=== PATIENT | female | born 1940 | race Caucasian/White ===

== ENCOUNTER 2017-01-14 20:38 | Inpatient (IN) | payer MEDICARE, OTHER ==
--- NOTE | ~2017-01-14 | HP ---
Unit #: [id number] #: [id number] Patient: JEAN-PIERRE BUCKLEY [id number] [place] [address] [id number] MR#: [id number] NAME: JEAN-PIERRE BUCKLEY ROOM: P204 Age: 76 Sex: F Admission Date: 01/14/2017 : 1940 Attending Physician: Jass Shore M.D. Admitting Physician: Jass Shore M.D. Primary Care Physician: [facility] HISTORY AND PHYSICAL HISTORY OF PRESENT ILLNESS Jean-Pierre is a 76 year old admitted to [address] [place] [address] because of her abuse of alcohol. She is detoxing. PAST MEDICAL HISTORY 1. Long history of alcohol abuse. 2. Hypothyroidism. 3. Rheumatoid arthritis. 4. History of sick sinus syndrome. a. Pacemaker. PAST SURGICAL HISTORY 1. Pacemaker placed. 2. Hysterectomy. 3. T and A. ALLERGIES No known drug allergies. SOCIAL HISTORY She does not smoke. Drinks at least a bottle of wine on a daily basis and denies illicit drug use. FAMILY HISTORY Medically noncontributory. REVIEW OF SYSTEMS CONSTITUTIONAL: No fever or chills. HEENT: Denies any sore throat, ear pain or runny nose. CARDIOVASCULAR: Denies chest pain, irregular heart rhythm or palpitations. CHEST: Denies shortness of breath or cough. No hemoptysis. GASTROINTESTINAL: Denies nausea, vomiting, diarrhea or chronic constipation. ENDOCRINE: Denies history of increased thirst or urination. No recent significant weight loss or gain. GENITOURINARY: Denies dysuria, frequency, or hematuria. SKIN: Denies any rashes. HEMATOLOGIC: Denies history of increased bleeding or bruising. MUSCULOSKELETAL: Denies any hot, swollen joints. No generalized muscle pain. NEUROLOGIC: Denies problems with vision or speech. No frequent, severe headaches. No numbness, tingling or weakness in any extremities. Denies loss of bladder or bowel control. Unit #: [id number] #: [id number] Patient: JEAN-PIERRE BUCKLEY CURRENT MEDICATIONS 1. Detox protocol. 2. BuSpar 10 mg q.h.s. 3. Multivitamin 1 daily. 4. Lasix 20 mg daily. 5. KCL 20 mEq b.i.d. 6. Claritin 10 mg daily. 7. Wellbutrin 150 mg daily. 8. Inderal 40 mg t.i.d. 9. Naproxen 500 mg b.i.d. 10. Protonix 40 mg daily. 11. Levothroid 0.075 mg daily. 12. Trazodone 150 mg q.h.s. PHYSICAL EXAMINATION GENERAL: Alert, elderly lady in no apparent distress. VITAL SIGNS: Blood pressure 146/70, heart rate 80, respirations 16, temperature 98.6. WEIGHT: 160. HEIGHT: 5 feet 5 inches. SKIN: Warm and dry without rash or lesion. HEENT: Normocephalic. TMs not viewed. Oral and nasal passages clear. Conjunctivae clear. PERRLA. EOMs intact. NECK: Supple without lymphadenopathy or thyromegaly. HEART: Regular rate and rhythm without murmur. LUNGS: Clear. ABDOMEN: Soft, nontender. : Not done. EXTREMITIES: No evidence of cyanosis, clubbing or edema. Moves all without focal deficit. NEUROLOGICAL: Grossly within normal limits. Cranial Nerves: II: Visual hdz are intact. III, IV AND : Extraocular movements are intact. Pupils are equal, round and reactive to light. V: Facial sensation is grossly normal. VII: Facial movements and expression are normal. VIII: Auditory acuity grossly intact. IX, X: Uvula is midline. Phonation is normal. XI: Patient shrugs shoulders and turns head normally. XII: Tongue protrudes in the midline. Sensory and Motor Function: Sensory and motor sensation is grossly normal. Motor: moves all extremities well. Coordination: Gait is normal. Deep Tendon Reflexes: Intact. IMPRESSION Psychiatric admission. RECOMMENDATIONS PSYCHIATRIC: Per psychiatrist. MEDICAL: 1. See no contraindications to participate in facility's activities. 2. Detox per protocol. 3. Continue Levothroid, Lasix, KCL and Inderal. Check TSH. Monitor blood pressure and heart rate q. day. MEDICAL PROGNOSIS Good. Unit #: [id number] #: [id number] Patient: JEAN-PIERRE BUCKLEY MEDICAL CONDITION Stable. Dictated by... Thais Worthy P.A.-C. for Pedro Cortes/bi TD: 01/15/2017 17:41 JOB #: [id number] HISTORY AND PHYSICAL Page 1 of 1 X Thais Worthy HISTORY AND PHYSICAL
--- NOTE | ~2017-01-14 | PA ---
Unit #: [id number] #: [id number] Patient: JEAN-PIERRE SINGH [id number] [place] [address] [id number] MR#: [id number] NAME: JEAN-PIERRE SINGH ROOM: P204 Age: 76 Sex: F Admission Date: 01/14/2017 : 1940 Date of Assessment: 01/15/2017 Attending Physician: Jass Shore M.D. Admitting Physician: Jass Shore M.D. Primary Care Physician: [facility] PSYCHIATRIC ASSESSMENT DATE OF SERVICE 01/15/2017. INFORMANTS The patient, reliable. The patient's family, reliable. OLOP, reliable. CHIEF COMPLAINT Alcoholism and depression. HISTORY OF PRESENT ILLNESS Ms. Singh is a 76-year-old woman, whose family reports that she drinks wine every night and has been having increasing medical problems including pain. Her primary care physician would not give her pain medications due to her longstanding history of alcohol use. She says "I drink excessively because it helps with the pain," and says that she has occasional suicidal thoughts, but none acute at the time of presentation. Family reports that she has been to rehab twice recently and has been sober 4 to 6 months at a time. She was in a decompensated state and was admitted for detox and further assessment. PAST PSYCHIATRIC HISTORY Previous admissions at [facility], this was in [place] and has been in outpatient treatment recently. She currently takes Prozac 20 mg daily for depression. FAMILY PSYCHIATRIC HISTORY The patient's father was an alcoholic and there was alcoholism on the mother's side of the family as well. SOCIAL HISTORY The patient is a retired high-school graduate who is currently living with her family. She has adult children who are supportive. PAST MEDICAL HISTORY The patient has had hypothyroidism, persistent cough, multiple allergies, and chronic back pain. MEDICATIONS Levothyroxine 75 mcg daily, trazodone 150 mg at bedtime, omeprazole 20 mg daily, BuSpar 10 mg at bedtime, naproxen 500 mg b.i.d., propranolol 40 mg b.i.d., bupropion 150 mg daily, Claritin 10 mg daily, Lasix 20 mg daily, Klor-Con 20 mEq b.i.d., hydroxyzine 25 mg daily as needed for anxiety. Unit #: [id number] #: [id number] Patient: JEAN-PIERRE SINGH ALLERGIES Latex. SUBSTANCE USE HISTORY As noted above. The patient has significant history of alcoholism. MENTAL STATUS EXAMINATION The patient presented as a neatly dressed, mildly disheveled woman, who appeared younger than her stated age. She was pleasant and cooperative with the examination. Vital signs were temperature 98.1, blood pressure 147/70, respirations 18, and pulse 76. Her speech was soft, but easily understood. Musculoskeletal examination was calm. Her mood was mildly anxious with a congruent affect. She was alert and fully oriented. Memory and concentration were fair. Thought processes were goal directed with no active psychosis. She denied active suicidal ideation, intent, or plan. Insight and judgment were fair. Fund of knowledge and abstraction were fair. ASSETS AND LIABILITIES The patient has supportive family and presents voluntarily for treatment. Liabilities include chronic alcoholism. ADMITTING DIAGNOSES AXIS I: Alcohol dependence with withdrawal, uncomplicated, F10.230. AXIS II: No diagnosis. AXIS III: Hypothyroidism, chronic pain, hypertension, seasonal allergies. AXIS IV: AXIS V: PSYCHIATRIC PLAN Jean-Pierre was admitted and placed on suicide precautions as well as the alcohol detox protocol. Her home medications will be restarted except for those that her duplicated on the protocol, and she will enroll in dual diagnosis groups and activities. We will work towards discharge after 3 to 5 day hospital stay with followup through chemical dependency programing in the community. ESTIMATED LENGTH OF STAY 5 days. Dictated by... Jass Shore M.D. SHARON/megan TD: 01/16/2017 01:13 JOB #: [id number] Unit #: [id number] #: [id number] Patient: JEAN-PIERRE SINGH PSYCHIATRIC ASSESSMENT Page 1 of 1 X Jass Shore MD X PSYCHIATRIC ASSESSMENT
--- NOTE | ~2017-01-14 | DS ---
Unit #: [id number] #: [id number] Patient: JEAN-PIERRE SINGH [id number] [place] [address] [id number] MR#: [id number] NAME: JEAN-PIERRE SINGH ROOM: P204 Age: 76 Sex: F Admission Date: 01/14/2017 : 1940 Discharge Date: 01/16/2017 Attending Physician: Jass Shore M.D. Primary Care Physician: [facility] DISCHARGE SUMMARY REASON FOR ADMISSION Ms. Singh is a 76-year-old woman, whose family reports that she drinks wine every night with increasing medical problems. Her primary care physician would not give her pain medications due to her longstanding history of alcohol use, despite her complaints of chronic pain. She has been to rehab twice recently and has had up to 6 months of sobriety. She was admitted for detox. DIAGNOSTIC STUDIES LABORATORY RESULTS: Urinalysis was within normal limits. UDS was unremarkable. HOSPITAL COURSE Jean-Pierre was admitted and placed on suicide precautions and the alcohol detox protocol. She had a brief period of inpatient detox, and was generally pleasant and cooperative. However, the day after admission, her family contacted the social media marketing manager, stating that there was a "family emergency" and apparently, the patient had called her family stating that she felt like she was "in nursing home." She demanded discharge against medical advice, and as the patient lacks criteria for involuntary hospitalization, this request was granted. DISCHARGE DIAGNOSES AXIS I: Alcohol dependence with withdrawal, uncomplicated, F10.230. AXIS II: No diagnosis. AXIS III: Hypothyroidism, chronic pain, hypertension, seasonal allergies. AXIS IV: AXIS V: DISCHARGE INSTRUCTIONS Followup with primary care physician and medical treatment for alcoholism at the patient's discretion. DISCHARGE MEDICATIONS None. CONDITION AT DISCHARGE Fair. PROGNOSIS Fair. Unit #: [id number] #: [id number] Patient: JEAN-PIERRE SINGH DIET AND ACTIVITY Per primary care doctor. Dictated by... Pedro AlbarranH/modl TD: 01/24/2017 00:11 JOB #: [id number] DISCHARGE SUMMARY Page 1 of 1 X Jass Shore MD DISCHARGE SUMMARY
[2017-01-15 09:40] LABS: BASOPHIL% 0.5 % (0-2.5); EOSINOPHIL# 0.2 X10e3 (0-0.7); EOSINOPHIL% 3.2 % (0.0-7.0); HEMATOCRIT 43.8 % (35.0-45.0); HEMOGLOBIN 14.2 gm/dL (12.0-16.0); LYMPHOCYTE# 1.3 X10e3 (1.0-3.5); LYMPHOCYTE% 21.6 % (17.0-45.0); MEAN CELL VOLUME 99.1 FL (83-96); MEAN CORPUSCULAR HEMOGLOBIN 32.1 PG (28-34); MEAN CORPUSCULAR HGB CONC 32.4 g/dL (30-36); MEAN PLATELET VOLUME 9.4 FL (6.5-11.5); MONOCYTE# 0.6 X10e3 (0-1.0); MONOCYTE% 10.6 % (3.0-12.0); NEUTROPHIL# 3.8 X10e3 (1.5-7.1); NEUTROPHIL% 64.1 % (40-75); PLATELET COUNT 150 X10e3 (140-420); RED BLOOD COUNT 4.42 X10e (3.90-5.30); RED CELL DISTRIBUTION WIDTH 14.3 % (11.0-15.5)
[2017-01-15 09:41] LABS: DIFF IND NO
[2017-01-15 10:15] LABS: ALBUMIN SERUM 3.9 g/dL (3.5-5.0); BILIRUBIN,TOTAL 0.7 mg/dL (0.2-2.0); CALCIUM SERUM 9.6 mg/dL (8.4-10.2); GLOM FILT RATE Estimated 57.1 mL/min (>60); POTASSIUM 4.3 mmol/L (3.5-5.1); PROTEIN TOTAL SERUM 6.1 g/dL (6.0-8.3)
[2017-01-16 09:39] LABS: URINE SOURCE CLEAN CATCH
[2017-01-16 12:39] LABS: URINE APPEARANCE CLEAR; URINE BILIRUBIN NEG (NEG); URINE BLOOD NEG (NEG); URINE COLOR DK YELLOW; URINE GLUCOSE NEG (NEG); URINE KETONE NEG (NEG); URINE LEUKOCYTE ESTERASE NEG (NEG); URINE NITRATE NEG (NEG); URINE PROTEIN NEG (NEG); URINE SPECIFIC GRAVITY 1.009 (1.003-1.035); URINE UROBILINOGEN 0.2 MG/DL (NEG)
[2017-01-16 13:12] LABS: AMPHETAMINE NEG (NEG); BARBITURATES NEG (NEG); BENZODIAZEPINES NEG (NEG); COCAINE NEG (NEG); MARIJUANA NEG (NEG); OPIATES NEG (NEG); TRICYCLIC ANTIDEPRESSANTS NEG (NEG); U METHADONE NEG (NEG)
== END 2017-01-16 15:23 | disposition left against medical advice (07) | DRG 894 ==
LOC: P2S 20:38
PROVIDERS: Psychiatry & Neurology Psychiatry
PROC: HZ2ZZZZ Detoxification Services for Substance Abuse Treatment (ICD-10-PCS; principal; 2017-01-14)
DX: F10.230 Alcohol dependence with withdrawal, uncomplicated (principal); I10 Essential (primary) hypertension; E03.9 Hypothyroidism, unspecified; G89.29 Other chronic pain; J30.2 Other seasonal allergic rhinitis
CPT/HCPCS: 80053; 80307; 81003; 84439; 84443; 85025